=== PATIENT | female | born 1930 | race Caucasian/White ===

== ENCOUNTER 2016-05-14 11:42 | Inpatient (IN) | payer MEDICARE, BC ==
[~2016-05-14] VITALS: Ht 154.9 cm; Wt 59.6 kg
[2016-05-14] MEDS ORDERED: NEB-ALBUTEROL 2.5 MG/3 ML INH PRN (19:55)
[2016-05-14] MEDS ORDERED: PNEUMO VAC 25 MCG/0.5 ML VL IM.VACC ONE (19:55)
[2016-05-14] MEDS: NEB-BROVANA 15 MCG/2 ML INH SCH (20:00)
[2016-05-14] MEDS: DOCUSATE SOD 100 MG CAP PO SCH (21:00)
[2016-05-14] MEDS: SACCHA BOULARDII 250MG CAP PO SCH (21:00)
[2016-05-14] MEDS: FAMOTIDINE 20 MG TAB PO SCH (21:00)
[2016-05-14] MEDS: ALPRAZOLAM 0.25 MG TAB PO SCH (21:00)
[2016-05-14] MEDS ORDERED: TUBERCULIN PPD 5 UNIT SYR ID.VACC ONE (21:00)
[2016-05-14] MEDS: Carvedilol 3.125 MG TAB PO SCH (21:00)
[2016-05-14] MEDS: MONTELUKAST 10 MG TAB PO SCH (21:00)
[2016-05-14] MEDS: Atorvastatin 20 MG TAB PO SCH (21:00)
[2016-05-14 22:44] VITALS: BMI 24.9
[2016-05-14 23:54] VITALS: RESP 16
[2016-05-15 00:19] VITALS: BP_SYST 113; BP_SYST 114; RESP 18; TEMP 98
[2016-05-15 00:20] VITALS: BP_SYST 118; RESP 18
[2016-05-15] MEDS: LEVOTHYROXINE 0.088 MG TAB PO SCH (06:03)
[2016-05-15] MEDS: DUONEB INH SCH ×3 (06:30→19:46)
[2016-05-15] MEDS: NEB-BUDESONIDE 0.5 MG INH SCH ×2 (07:00→19:46)
[2016-05-15] MEDS: NEB-BROVANA 15 MCG/2 ML INH SCH ×2 (07:41→19:46)
[2016-05-15] MEDS: CHOLECALCIFEROL 1,000 UNITS TAB PO SCH (09:37)
[2016-05-15] MEDS: SACCHA BOULARDII 250MG CAP PO SCH ×2 (09:37→20:36)
[2016-05-15] MEDS: FAMOTIDINE 20 MG TAB PO SCH ×2 (09:38→20:35)
[2016-05-15] MEDS: Carvedilol 3.125 MG TAB PO SCH ×2 (09:38→20:36)
[2016-05-15] MEDS: SERTRALINE 25 MG TAB PO SCH (09:38)
[2016-05-15] MEDS: PREDNISONE 20 MG TAB PO SCH (09:39)
[2016-05-15] MEDS: Furosemide 20 MG TAB PO SCH (09:39)
[2016-05-15] MEDS: ENOXAPARIN 40 MG/0.4 ML SYR SUBQ SCH (09:41)
[2016-05-15] MEDS: ALPRAZOLAM 0.25 MG TAB PO SCH ×3 (09:48→20:37)
[2016-05-15 10:10] VITALS: Ht 154.9 cm; Wt 59.6 kg
[2016-05-15 10:19] VITALS: BP_SYST 154; RESP 18; TEMP 97.7
[2016-05-15 20:00] VITALS: BP_SYST 137; RESP 18; TEMP 97.9
[2016-05-15] MEDS: Atorvastatin 20 MG TAB PO SCH (20:35)
[2016-05-15] MEDS: POLYETHYLENE GLYCOL 17 GM PACKET PO SCH (20:36)
[2016-05-15] MEDS: MONTELUKAST 10 MG TAB PO SCH (20:36)
[2016-05-15] MEDS: DOCUSATE SOD 100 MG CAP PO SCH (20:36)
[2016-05-16] MEDS: LEVOTHYROXINE 0.088 MG TAB PO SCH (06:29)
[2016-05-16] MEDS: NEB-BROVANA 15 MCG/2 ML INH SCH ×2 (07:03→18:14)
[2016-05-16] MEDS: NEB-BUDESONIDE 0.5 MG INH SCH ×2 (07:03→18:14)
[2016-05-16] MEDS: DUONEB INH SCH ×3 (07:03→18:14)
[2016-05-16 07:25] VITALS: BP_SYST 140; RESP 18; TEMP 97.6
[2016-05-16] MEDS: POLYETHYLENE GLYCOL 17 GM PACKET PO SCH (10:17)
[2016-05-16] MEDS: PREDNISONE 20 MG TAB PO SCH (10:17)
[2016-05-16] MEDS: Furosemide 20 MG TAB PO SCH (10:17)
[2016-05-16] MEDS: Carvedilol 3.125 MG TAB PO SCH ×2 (10:17→20:23)
[2016-05-16] MEDS: CHOLECALCIFEROL 1,000 UNITS TAB PO SCH (10:17)
[2016-05-16] MEDS: ENOXAPARIN 40 MG/0.4 ML SYR SUBQ SCH (10:18)
[2016-05-16] MEDS: SERTRALINE 25 MG TAB PO SCH (10:18)
[2016-05-16] MEDS: FAMOTIDINE 20 MG TAB PO SCH ×2 (10:18→20:24)
[2016-05-16] MEDS: SACCHA BOULARDII 250MG CAP PO SCH ×2 (10:19→20:23)
[2016-05-16] MEDS: ALPRAZOLAM 0.25 MG TAB PO SCH ×3 (10:23→20:24)
[2016-05-16 11:18] VITALS: BP_SYST 153; RESP 18; TEMP 97.7
[2016-05-16 16:12] VITALS: BP_SYST 131; RESP 18; TEMP 98.7
[2016-05-16] MEDS: NEB-ALBUTEROL 2.5 MG/3 ML INH PRN (16:42)
[2016-05-16] MEDS: DOCUSATE SOD 100 MG CAP PO SCH (20:23)
[2016-05-16] MEDS: MONTELUKAST 10 MG TAB PO SCH (20:24)
[2016-05-16] MEDS: Atorvastatin 20 MG TAB PO SCH (20:24)
[2016-05-16] MEDS: SKIN TEST: READ AND RECORD XX SCH (20:29)
[2016-05-17] MEDS: LEVOTHYROXINE 0.088 MG TAB PO SCH (06:16)
[2016-05-17 06:30] VITALS: BP_SYST 162; TEMP 97.6
[2016-05-17 06:31] VITALS: TEMP 97.6
[2016-05-17] MEDS: DUONEB INH SCH ×3 (07:14→17:03)
[2016-05-17] MEDS: NEB-BUDESONIDE 0.5 MG INH SCH ×2 (07:14→17:03)
[2016-05-17] MEDS: NEB-BROVANA 15 MCG/2 ML INH SCH ×2 (07:14→17:03)
[2016-05-17] MEDS ORDERED: KCL CR 20 MEQ TAB PO ONE (08:45)
[2016-05-17] MEDS ORDERED: POLYETHYLENE GLYCOL 17 GM PACKET PO PRN (08:50)
[2016-05-17 10:03] VITALS: BP_SYST 148; RESP 18; TEMP 97.7
[2016-05-17] MEDS: Carvedilol 3.125 MG TAB PO SCH ×2 (10:20→21:03)
[2016-05-17] MEDS: ENOXAPARIN 40 MG/0.4 ML SYR SUBQ SCH (10:20)
[2016-05-17] MEDS: SERTRALINE 25 MG TAB PO SCH (10:20)
[2016-05-17] MEDS: Furosemide 20 MG TAB PO SCH (10:20)
[2016-05-17] MEDS: SACCHA BOULARDII 250MG CAP PO SCH ×2 (10:21→21:04)
[2016-05-17] MEDS: CHOLECALCIFEROL 1,000 UNITS TAB PO SCH (10:21)
[2016-05-17] MEDS: FAMOTIDINE 20 MG TAB PO SCH ×2 (10:22→21:04)
[2016-05-17] MEDS: ALPRAZOLAM 0.25 MG TAB PO SCH ×3 (10:28→21:03)
[2016-05-17] MEDS: BENZONATATE 100 MG CAP PO SCH ×2 (16:22→21:05)
[2016-05-17 16:30] VITALS: BP_SYST 117; RESP 18; TEMP 97.5
[2016-05-17] MEDS: DOCUSATE SOD 100 MG CAP PO SCH (21:03)
[2016-05-17] MEDS: MONTELUKAST 10 MG TAB PO SCH (21:04)
[2016-05-17] MEDS: Atorvastatin 20 MG TAB PO SCH (21:04)
[2016-05-18 05:00] VITALS: BP_SYST 14; RESP 18; TEMP 97.4
[2016-05-18] MEDS: LEVOTHYROXINE 0.088 MG TAB PO SCH (06:29)
[2016-05-18] MEDS ORDERED: MISSING DOSE XX ONE (06:30)
[2016-05-18] MEDS: NEB-BUDESONIDE 0.5 MG INH SCH ×2 (07:35→19:01)
[2016-05-18] MEDS: DUONEB INH SCH ×3 (07:35→19:01)
[2016-05-18] MEDS: NEB-BROVANA 15 MCG/2 ML INH SCH ×2 (07:35→19:01)
[2016-05-18] MEDS: SERTRALINE 25 MG TAB PO SCH (09:04)
[2016-05-18] MEDS: CHOLECALCIFEROL 1,000 UNITS TAB PO SCH (09:04)
[2016-05-18] MEDS: Carvedilol 3.125 MG TAB PO SCH ×2 (09:05→20:31)
[2016-05-18] MEDS: SACCHA BOULARDII 250MG CAP PO SCH ×2 (09:05→20:31)
[2016-05-18] MEDS: ALPRAZOLAM 0.25 MG TAB PO SCH ×3 (09:05→20:31)
[2016-05-18] MEDS: PREDNISONE 10 MG TAB PO SCH (09:05)
[2016-05-18] MEDS: Furosemide 20 MG TAB PO SCH (09:05)
[2016-05-18] MEDS: FAMOTIDINE 20 MG TAB PO SCH ×2 (09:06→20:32)
[2016-05-18] MEDS: KCL CR 10 MEQ CAP PO SCH (09:06)
[2016-05-18] MEDS: BENZONATATE 100 MG CAP PO SCH (09:07)
[2016-05-18] MEDS: ENOXAPARIN 40 MG/0.4 ML SYR SUBQ SCH (09:08)
[2016-05-18 10:18] VITALS: BP_SYST 147; RESP 18; TEMP 97.4
[2016-05-18 16:06] VITALS: BP_SYST 133; RESP 18; TEMP 97.7
[2016-05-18] MEDS: MONTELUKAST 10 MG TAB PO SCH (20:31)
[2016-05-18] MEDS: DOCUSATE SOD 100 MG CAP PO SCH (20:31)
[2016-05-18] MEDS: Atorvastatin 20 MG TAB PO SCH (20:32)
[2016-05-19 05:02] VITALS: BP_SYST 127; RESP 18; TEMP 97.7
[2016-05-19] MEDS: NEB-BUDESONIDE 0.5 MG INH SCH ×2 (07:00→19:13)
[2016-05-19] MEDS: LEVOTHYROXINE 0.088 MG TAB PO SCH (07:45)
[2016-05-19] MEDS: DUONEB INH SCH ×3 (07:49→19:13)
[2016-05-19] MEDS: NEB-BROVANA 15 MCG/2 ML INH SCH ×2 (07:50→19:13)
[2016-05-19] MEDS: SERTRALINE 25 MG TAB PO SCH (09:00)
[2016-05-19] MEDS: CHOLECALCIFEROL 1,000 UNITS TAB PO SCH (09:01)
[2016-05-19] MEDS: SACCHA BOULARDII 250MG CAP PO SCH ×2 (09:01→20:54)
[2016-05-19] MEDS: Carvedilol 3.125 MG TAB PO SCH ×2 (09:01→20:54)
[2016-05-19] MEDS: KCL CR 10 MEQ CAP PO SCH (09:01)
[2016-05-19] MEDS: FAMOTIDINE 20 MG TAB PO SCH ×2 (09:01→20:54)
[2016-05-19] MEDS: PREDNISONE 10 MG TAB PO SCH (09:02)
[2016-05-19] MEDS: Furosemide 20 MG TAB PO SCH (09:02)
[2016-05-19] MEDS: ENOXAPARIN 40 MG/0.4 ML SYR SUBQ SCH (09:03)
[2016-05-19] MEDS: POLYETHYLENE GLYCOL 17 GM PACKET PO PRN (09:05)
[2016-05-19] MEDS: ALPRAZOLAM 0.25 MG TAB PO SCH ×3 (09:10→20:59)
[2016-05-19] MEDS: BENZONATATE 100 MG CAP PO PRN ×2 (12:39→20:53)
[2016-05-19 13:06] VITALS: BP_SYST 114; RESP 18; TEMP 97.8
[2016-05-19 13:07] VITALS: RESP 20; TEMP 98
[2016-05-19 16:01] VITALS: BP_SYST 151; RESP 18; TEMP 97.8
[2016-05-19] MEDS: MONTELUKAST 10 MG TAB PO SCH (20:53)
[2016-05-19] MEDS: DOCUSATE SOD 100 MG CAP PO SCH (20:54)
[2016-05-19] MEDS: Atorvastatin 20 MG TAB PO SCH (20:54)
[2016-05-20] MEDS: ALENDRONATE 70 MG TAB PO SCH (06:18)
[2016-05-20 07:10] VITALS: BP_SYST 130; RESP 18; TEMP 98
[2016-05-20] MEDS: LEVOTHYROXINE 0.088 MG TAB PO SCH (07:34)
[2016-05-20] MEDS: DUONEB INH SCH ×3 (08:27→19:17)
[2016-05-20] MEDS: NEB-BROVANA 15 MCG/2 ML INH SCH ×2 (08:27→19:17)
[2016-05-20] MEDS: NEB-BUDESONIDE 0.5 MG INH SCH ×2 (08:27→19:17)
[2016-05-20] MEDS ORDERED: MISSING DOSE XX ONE (10:00)
[2016-05-20] MEDS: ALPRAZOLAM 0.25 MG TAB PO SCH ×3 (10:02→21:17)
[2016-05-20] MEDS: BENZONATATE 100 MG CAP PO PRN ×2 (10:02→17:59)
[2016-05-20] MEDS: ENOXAPARIN 40 MG/0.4 ML SYR SUBQ SCH (10:02)
[2016-05-20] MEDS: FAMOTIDINE 20 MG TAB PO SCH ×2 (10:03→21:17)
[2016-05-20] MEDS: KCL CR 10 MEQ CAP PO SCH (10:03)
[2016-05-20] MEDS: PREDNISONE 10 MG TAB PO SCH (10:03)
[2016-05-20] MEDS: SERTRALINE 25 MG TAB PO SCH (10:03)
[2016-05-20] MEDS: SACCHA BOULARDII 250MG CAP PO SCH ×2 (10:04→21:17)
[2016-05-20] MEDS: Furosemide 20 MG TAB PO SCH (10:04)
[2016-05-20] MEDS: Carvedilol 3.125 MG TAB PO SCH ×2 (10:04→21:17)
[2016-05-20 10:53] VITALS: BP_SYST 152; RESP 18; TEMP 98.1
[2016-05-20] MEDS: CHOLECALCIFEROL 1,000 UNITS TAB PO SCH (10:59)
[2016-05-20 15:32] VITALS: BP_SYST 159; RESP 18; TEMP 97.6
[2016-05-20] MEDS: ACETAMINOPHEN 325 MG TAB PO PRN (15:49)
[2016-05-20] MEDS: MONTELUKAST 10 MG TAB PO SCH (21:17)
[2016-05-20] MEDS: Atorvastatin 20 MG TAB PO SCH (21:17)
[2016-05-20] MEDS: DOCUSATE SOD 100 MG CAP PO SCH (21:17)
[2016-05-21 00:04] VITALS: BP_SYST 152; RESP 18; TEMP 98
[2016-05-21] MEDS: DUONEB INH SCH ×3 (06:06→19:20)
[2016-05-21] MEDS: LEVOTHYROXINE 0.088 MG TAB PO SCH (06:06)
[2016-05-21] MEDS: NEB-BUDESONIDE 0.5 MG INH SCH ×2 (06:06→19:20)
[2016-05-21] MEDS: NEB-BROVANA 15 MCG/2 ML INH SCH ×2 (06:07→19:20)
[2016-05-21] MEDS: FAMOTIDINE 20 MG TAB PO SCH ×2 (09:16→20:53)
[2016-05-21] MEDS: SERTRALINE 25 MG TAB PO SCH (09:16)
[2016-05-21] MEDS: ALPRAZOLAM 0.25 MG TAB PO SCH ×3 (09:16→20:53)
[2016-05-21] MEDS: PREDNISONE 10 MG TAB PO SCH (09:16)
[2016-05-21] MEDS: Carvedilol 3.125 MG TAB PO SCH ×2 (09:17→20:53)
[2016-05-21] MEDS: SACCHA BOULARDII 250MG CAP PO SCH ×2 (09:17→20:53)
[2016-05-21] MEDS: Furosemide 20 MG TAB PO SCH (09:17)
[2016-05-21] MEDS: KCL CR 10 MEQ CAP PO SCH (09:17)
[2016-05-21] MEDS: CHOLECALCIFEROL 1,000 UNITS TAB PO SCH (09:18)
[2016-05-21] MEDS: POLYETHYLENE GLYCOL 17 GM PACKET PO PRN (09:18)
[2016-05-21] MEDS: ENOXAPARIN 40 MG/0.4 ML SYR SUBQ SCH (09:26)
[2016-05-21 11:39] VITALS: BP_SYST 119; RESP 16; TEMP 98.7
[2016-05-21] MEDS: NEB-ALBUTEROL 2.5 MG/3 ML INH PRN (15:23)
[2016-05-21 16:40] VITALS: BP_SYST 115; RESP 18; TEMP 97.3
[2016-05-21] MEDS: MONTELUKAST 10 MG TAB PO SCH (20:53)
[2016-05-21] MEDS: Atorvastatin 20 MG TAB PO SCH (20:53)
[2016-05-21] MEDS: DOCUSATE SOD 100 MG CAP PO SCH (20:54)
[2016-05-21] MEDS ORDERED: TUBERCULIN PPD 5 UNIT SYR ID.VACC ONE (21:00)
[2016-05-21] MEDS: BENZONATATE 100 MG CAP PO PRN (21:06)
[2016-05-22] VITALS (8 sets, daily range): BP systolic 137–157; RESP 18–20; TEMP 97.4–98.1
[2016-05-22] MEDS: NEB-BUDESONIDE 0.5 MG INH SCH ×2 (05:19→17:35)
[2016-05-22] MEDS: DUONEB INH SCH ×5 (05:19→22:55)
[2016-05-22] MEDS: NEB-BROVANA 15 MCG/2 ML INH SCH ×2 (05:19→17:35)
[2016-05-22] MEDS: LEVOTHYROXINE 0.088 MG TAB PO SCH (06:24)
[2016-05-22] MEDS: NEB-ALBUTEROL 2.5 MG/3 ML INH PRN (06:41)
[2016-05-22] MEDS: ALPRAZOLAM 0.25 MG TAB PO SCH ×2 (07:16→15:30)
[2016-05-22] MEDS: Furosemide 20 MG TAB PO SCH (07:17)
[2016-05-22] MEDS: KCL CR 10 MEQ CAP PO SCH (09:02)
[2016-05-22] MEDS: Carvedilol 3.125 MG TAB PO SCH ×2 (09:03→20:32)
[2016-05-22] MEDS: BENZONATATE 100 MG CAP PO PRN ×2 (09:03→20:34)
[2016-05-22] MEDS: SACCHA BOULARDII 250MG CAP PO SCH ×2 (09:03→20:32)
[2016-05-22] MEDS: CHOLECALCIFEROL 1,000 UNITS TAB PO SCH (09:04)
[2016-05-22] MEDS: SERTRALINE 25 MG TAB PO SCH (09:05)
[2016-05-22] MEDS: FAMOTIDINE 20 MG TAB PO SCH ×2 (09:05→20:32)
[2016-05-22] MEDS: ENOXAPARIN 40 MG/0.4 ML SYR SUBQ SCH (09:11)
[2016-05-22] MEDS: PREDNISONE 10 MG TAB PO SCH (09:15)
[2016-05-22] MEDS ORDERED: Furosemide 20 MG/2 ML VIAL IV ONE (17:15)
[2016-05-22] MEDS: NEB-NACL 3% 4 ML NEBU INH SCH ×2 (17:35→22:55)
[2016-05-22] MEDS: Atorvastatin 20 MG TAB PO SCH (20:32)
[2016-05-22] MEDS: DOCUSATE SOD 100 MG CAP PO SCH ×2 (20:32→20:38)
[2016-05-22] MEDS: MONTELUKAST 10 MG TAB PO SCH (20:32)
[2016-05-23] MEDS: NEB-ALBUTEROL 2.5 MG/3 ML INH PRN ×2 (03:07→23:45)
[2016-05-23 03:10] VITALS: BP_SYST 157; RESP 20; TEMP 97.4
[2016-05-23] MEDS: ALPRAZOLAM 0.25 MG TAB PO PRN ×3 (03:21→16:27)
[2016-05-23] MEDS: DUONEB INH SCH ×5 (05:10→23:46)
[2016-05-23] MEDS: NEB-BROVANA 15 MCG/2 ML INH SCH ×2 (05:10→17:17)
[2016-05-23] MEDS: NEB-NACL 3% 4 ML NEBU INH SCH ×4 (05:10→23:46)
[2016-05-23] MEDS: NEB-BUDESONIDE 0.5 MG INH SCH ×2 (05:11→17:18)
[2016-05-23] MEDS: Carvedilol 3.125 MG TAB PO SCH ×2 (08:38→20:52)
[2016-05-23] MEDS: SACCHA BOULARDII 250MG CAP PO SCH ×2 (08:38→20:52)
[2016-05-23] MEDS: KCL CR 10 MEQ CAP PO SCH (08:38)
[2016-05-23] MEDS: FAMOTIDINE 20 MG TAB PO SCH ×2 (08:38→20:52)
[2016-05-23] MEDS: LEVOTHYROXINE 0.088 MG TAB PO SCH (08:39)
[2016-05-23] MEDS: Furosemide 20 MG TAB PO SCH (08:39)
[2016-05-23] MEDS: CHOLECALCIFEROL 1,000 UNITS TAB PO SCH (08:39)
[2016-05-23] MEDS: SERTRALINE 25 MG TAB PO SCH (08:40)
[2016-05-23] MEDS: ENOXAPARIN 40 MG/0.4 ML SYR SUBQ SCH (08:40)
[2016-05-23 10:13] VITALS: BP_SYST 143; RESP 20; TEMP 97.8
[2016-05-23] MEDS ORDERED: MISSING DOSE XX ONE (10:15)
[2016-05-23] MEDS: BENZONATATE 100 MG CAP PO PRN ×2 (11:04→18:31)
[2016-05-23 16:25] VITALS: BP_SYST 132; RESP 20; TEMP 97.8
[2016-05-23] MEDS: MONTELUKAST 10 MG TAB PO SCH (20:52)
[2016-05-23] MEDS: Atorvastatin 20 MG TAB PO SCH (20:52)
[2016-05-23] MEDS: DOCUSATE SOD 100 MG CAP PO SCH (20:52)
[2016-05-23] MEDS: SKIN TEST: READ AND RECORD XX SCH (20:54)
[2016-05-24 00:03] VITALS: BP_SYST 151; RESP 20
[2016-05-24] MEDS: ALPRAZOLAM 0.25 MG TAB PO PRN ×2 (00:06→09:16)
[2016-05-24] MEDS: DUONEB INH SCH ×5 (05:19→22:58)
[2016-05-24] MEDS: NEB-NACL 3% 4 ML NEBU INH SCH ×4 (05:19→22:58)
[2016-05-24] MEDS: NEB-BROVANA 15 MCG/2 ML INH SCH ×2 (05:19→18:40)
[2016-05-24] MEDS: NEB-BUDESONIDE 0.5 MG INH SCH ×2 (05:19→18:40)
[2016-05-24] MEDS: LEVOTHYROXINE 0.088 MG TAB PO SCH (06:15)
[2016-05-24] MEDS: CHOLECALCIFEROL 1,000 UNITS TAB PO SCH (09:22)
[2016-05-24] MEDS: KCL CR 10 MEQ CAP PO SCH (09:22)
[2016-05-24] MEDS: ENOXAPARIN 40 MG/0.4 ML SYR SUBQ SCH (09:22)
[2016-05-24] MEDS: SERTRALINE 25 MG TAB PO SCH (09:22)
[2016-05-24] MEDS: BENZONATATE 100 MG CAP PO PRN ×2 (09:22→20:58)
[2016-05-24] MEDS: Furosemide 20 MG TAB PO SCH (09:23)
[2016-05-24] MEDS: FAMOTIDINE 20 MG TAB PO SCH ×2 (09:23→20:59)
[2016-05-24] MEDS: Carvedilol 3.125 MG TAB PO SCH ×2 (09:23→20:58)
[2016-05-24] MEDS: SACCHA BOULARDII 250MG CAP PO SCH ×2 (09:23→20:58)
[2016-05-24 11:30] VITALS: BP_SYST 131; RESP 20; TEMP 98
[2016-05-24] MEDS ORDERED: Furosemide 20 MG/2 ML VIAL IV ONE (14:30)
[2016-05-24] MEDS: PREDNISONE 20 MG TAB PO SCH (15:21)
[2016-05-24] MEDS: BUSPIRONE HCL 5 MG TAB PO SCH ×2 (15:21→20:58)
[2016-05-24 16:57] VITALS: BP_SYST 155; RESP 20; TEMP 97.9
[2016-05-24] MEDS: Atorvastatin 20 MG TAB PO SCH (20:58)
[2016-05-24] MEDS: DOCUSATE SOD 100 MG CAP PO SCH (20:59)
[2016-05-24] MEDS: MONTELUKAST 10 MG TAB PO SCH (20:59)
[2016-05-24] MEDS: LORAZEPAM 0.5 MG TAB PO PRN (21:49)
[2016-05-24 23:42] VITALS: BP_SYST 103; RESP 18; TEMP 97.5
[2016-05-24 23:43] VITALS: RESP 18
[2016-05-25] VITALS (7 sets, daily range): BP systolic 127–165; RESP 18; TEMP 97.4–98.3
[2016-05-25] MEDS: NEB-BUDESONIDE 0.5 MG INH SCH ×2 (06:21→18:45)
[2016-05-25] MEDS: NEB-BROVANA 15 MCG/2 ML INH SCH ×2 (06:21→18:45)
[2016-05-25] MEDS: NEB-NACL 3% 4 ML NEBU INH SCH ×4 (06:21→22:27)
[2016-05-25] MEDS: DUONEB INH SCH ×5 (06:21→22:27)
[2016-05-25] MEDS: LEVOTHYROXINE 0.088 MG TAB PO SCH (06:28)
[2016-05-25] MEDS: CHOLECALCIFEROL 1,000 UNITS TAB PO SCH (08:21)
[2016-05-25] MEDS: SACCHA BOULARDII 250MG CAP PO SCH ×2 (08:22→21:06)
[2016-05-25] MEDS: BUSPIRONE HCL 5 MG TAB PO SCH ×2 (08:22→21:06)
[2016-05-25] MEDS: Carvedilol 3.125 MG TAB PO SCH ×2 (08:22→21:06)
[2016-05-25] MEDS: KCL CR 10 MEQ CAP PO SCH (08:22)
[2016-05-25] MEDS: PREDNISONE 20 MG TAB PO SCH (08:22)
[2016-05-25] MEDS: FAMOTIDINE 20 MG TAB PO SCH ×2 (08:22→21:06)
[2016-05-25] MEDS: Furosemide 40 MG TAB PO SCH (08:23)
[2016-05-25] MEDS: ENOXAPARIN 40 MG/0.4 ML SYR SUBQ SCH (08:23)
[2016-05-25] MEDS: SERTRALINE 25 MG TAB PO SCH (08:23)
[2016-05-25] MEDS: LORAZEPAM 0.5 MG TAB PO PRN ×2 (15:59→22:49)
[2016-05-25] MEDS: MONTELUKAST 10 MG TAB PO SCH (21:06)
[2016-05-25] MEDS: DOCUSATE SOD 100 MG CAP PO SCH (21:06)
[2016-05-25] MEDS: Atorvastatin 20 MG TAB PO SCH (21:06)
[2016-05-26] MEDS: LEVOTHYROXINE 0.088 MG TAB PO SCH (06:09)
[2016-05-26] MEDS: NEB-BUDESONIDE 0.5 MG INH SCH ×2 (07:20→19:46)
[2016-05-26] MEDS: NEB-NACL 3% 4 ML NEBU INH SCH ×4 (07:20→22:15)
[2016-05-26] MEDS: NEB-BROVANA 15 MCG/2 ML INH SCH ×2 (07:20→19:46)
[2016-05-26] MEDS: DUONEB INH SCH ×5 (07:20→22:15)
[2016-05-26] MEDS: BENZONATATE 100 MG CAP PO PRN (09:14)
[2016-05-26] MEDS: FAMOTIDINE 20 MG TAB PO SCH ×2 (09:15→21:25)
[2016-05-26] MEDS: CHOLECALCIFEROL 1,000 UNITS TAB PO SCH (09:15)
[2016-05-26] MEDS: SERTRALINE 25 MG TAB PO SCH (09:15)
[2016-05-26] MEDS: SACCHA BOULARDII 250MG CAP PO SCH ×2 (09:16→21:25)
[2016-05-26] MEDS: PREDNISONE 20 MG TAB PO SCH (09:17)
[2016-05-26] MEDS: KCL CR 10 MEQ CAP PO SCH (09:17)
[2016-05-26] MEDS: Carvedilol 3.125 MG TAB PO SCH ×2 (09:19→21:27)
[2016-05-26] MEDS: BUSPIRONE HCL 5 MG TAB PO SCH ×2 (09:19→21:24)
[2016-05-26] MEDS: Furosemide 40 MG TAB PO SCH (09:20)
[2016-05-26] MEDS: ENOXAPARIN 40 MG/0.4 ML SYR SUBQ SCH (09:22)
[2016-05-26 17:20] VITALS: BP_SYST 145; RESP 18; TEMP 97.8
[2016-05-26] MEDS: DOCUSATE SOD 100 MG CAP PO SCH (21:00)
[2016-05-26] MEDS: LORAZEPAM 0.5 MG TAB PO PRN (21:25)
[2016-05-26] MEDS: Atorvastatin 20 MG TAB PO SCH (21:25)
[2016-05-26] MEDS: MONTELUKAST 10 MG TAB PO SCH (21:25)
[2016-05-27 05:21] VITALS: BP_SYST 148; RESP 18; TEMP 98.6
[2016-05-27 05:22] VITALS: TEMP 98.6
[2016-05-27] MEDS: ALENDRONATE 70 MG TAB PO SCH (05:39)
[2016-05-27] MEDS: NEB-NACL 3% 4 ML NEBU INH SCH ×4 (06:17→22:53)
[2016-05-27] MEDS: NEB-BUDESONIDE 0.5 MG INH SCH ×2 (06:17→19:06)
[2016-05-27] MEDS: NEB-BROVANA 15 MCG/2 ML INH SCH ×2 (06:17→19:06)
[2016-05-27] MEDS: DUONEB INH SCH ×5 (06:17→22:53)
[2016-05-27] MEDS: LEVOTHYROXINE 0.088 MG TAB PO SCH (06:29)
[2016-05-27] MEDS: BENZONATATE 100 MG CAP PO PRN (09:34)
[2016-05-27] MEDS: SACCHA BOULARDII 250MG CAP PO SCH ×2 (09:34→21:32)
[2016-05-27] MEDS: CHOLECALCIFEROL 1,000 UNITS TAB PO SCH (09:34)
[2016-05-27] MEDS: SERTRALINE 25 MG TAB PO SCH (09:35)
[2016-05-27] MEDS: PREDNISONE 20 MG TAB PO SCH (09:35)
[2016-05-27] MEDS: KCL CR 10 MEQ CAP PO SCH (09:35)
[2016-05-27] MEDS: LORAZEPAM 0.5 MG TAB PO PRN ×3 (09:36→21:33)
[2016-05-27] MEDS: Carvedilol 3.125 MG TAB PO SCH ×2 (09:37→21:33)
[2016-05-27] MEDS: BUSPIRONE HCL 5 MG TAB PO SCH ×2 (09:37→21:34)
[2016-05-27] MEDS: FAMOTIDINE 20 MG TAB PO SCH ×2 (09:37→21:33)
[2016-05-27] MEDS: ENOXAPARIN 40 MG/0.4 ML SYR SUBQ SCH (09:39)
[2016-05-27] MEDS ORDERED: MISSING DOSE XX ONE (09:45)
[2016-05-27 10:30] VITALS: BP_SYST 146; RESP 18; TEMP 97.6
[2016-05-27] MEDS: Furosemide 40 MG TAB PO SCH (12:27)
[2016-05-27 17:27] VITALS: BP_SYST 130; RESP 20; TEMP 98.4
[2016-05-27] MEDS: MONTELUKAST 10 MG TAB PO SCH (21:33)
[2016-05-27] MEDS: DOCUSATE SOD 100 MG CAP PO SCH (21:33)
[2016-05-27] MEDS: Atorvastatin 20 MG TAB PO SCH (21:33)
[2016-05-27 23:27] VITALS: BP_SYST 142; RESP 18; TEMP 97.6
[2016-05-28] MEDS: LEVOTHYROXINE 0.088 MG TAB PO SCH (06:33)
[2016-05-28] MEDS: DUONEB INH SCH ×5 (07:02→22:31)
[2016-05-28] MEDS: NEB-BUDESONIDE 0.5 MG INH SCH ×2 (07:02→18:37)
[2016-05-28] MEDS: NEB-BROVANA 15 MCG/2 ML INH SCH ×2 (07:02→18:36)
[2016-05-28] MEDS: NEB-NACL 3% 4 ML NEBU INH SCH ×4 (07:02→22:32)
[2016-05-28] MEDS: LORAZEPAM 0.5 MG TAB PO PRN ×3 (07:48→22:53)
[2016-05-28 09:35] VITALS: BP_SYST 115; RESP 18; TEMP 97
[2016-05-28] MEDS: BENZONATATE 100 MG CAP PO PRN ×2 (09:51→21:08)
[2016-05-28] MEDS: ENOXAPARIN 40 MG/0.4 ML SYR SUBQ SCH (09:51)
[2016-05-28] MEDS: SACCHA BOULARDII 250MG CAP PO SCH ×2 (09:52→21:10)
[2016-05-28] MEDS: KCL CR 10 MEQ CAP PO SCH (09:52)
[2016-05-28] MEDS: CHOLECALCIFEROL 1,000 UNITS TAB PO SCH (09:52)
[2016-05-28] MEDS: FAMOTIDINE 20 MG TAB PO SCH ×2 (09:52→21:09)
[2016-05-28] MEDS: Carvedilol 3.125 MG TAB PO SCH ×2 (09:52→21:08)
[2016-05-28] MEDS: PREDNISONE 10 MG TAB PO SCH (09:52)
[2016-05-28] MEDS: SERTRALINE 25 MG TAB PO SCH (09:52)
[2016-05-28] MEDS: BUSPIRONE HCL 5 MG TAB PO SCH ×2 (09:53→21:08)
[2016-05-28] MEDS: Furosemide 40 MG TAB PO SCH (09:53)
[2016-05-28 15:38] VITALS: BP_SYST 130; RESP 18; TEMP 97
[2016-05-28] MEDS: DOCUSATE SOD 100 MG CAP PO SCH (21:08)
[2016-05-28] MEDS: ACETAMINOPHEN 325 MG TAB PO PRN (21:09)
[2016-05-28] MEDS: MONTELUKAST 10 MG TAB PO SCH (21:09)
[2016-05-28] MEDS: Atorvastatin 20 MG TAB PO SCH (21:10)
[2016-05-29 03:04] VITALS: BP_SYST 40; RESP 18; TEMP 98
[2016-05-29] MEDS: LEVOTHYROXINE 0.088 MG TAB PO SCH (06:36)
[2016-05-29] MEDS: NEB-BUDESONIDE 0.5 MG INH SCH ×2 (07:50→18:50)
[2016-05-29] MEDS: NEB-BROVANA 15 MCG/2 ML INH SCH ×2 (07:50→18:50)
[2016-05-29] MEDS: NEB-NACL 3% 4 ML NEBU INH SCH ×4 (07:50→22:56)
[2016-05-29] MEDS: DUONEB INH SCH ×5 (07:50→22:55)
[2016-05-29] MEDS: ENOXAPARIN 40 MG/0.4 ML SYR SUBQ SCH (08:54)
[2016-05-29] MEDS: CHOLECALCIFEROL 1,000 UNITS TAB PO SCH (08:54)
[2016-05-29] MEDS: KCL CR 10 MEQ CAP PO SCH (08:55)
[2016-05-29] MEDS: SACCHA BOULARDII 250MG CAP PO SCH ×2 (08:55→21:34)
[2016-05-29] MEDS: SERTRALINE 25 MG TAB PO SCH (08:55)
[2016-05-29] MEDS: FAMOTIDINE 20 MG TAB PO SCH ×2 (08:55→21:34)
[2016-05-29] MEDS: PREDNISONE 10 MG TAB PO SCH (08:55)
[2016-05-29] MEDS: LORAZEPAM 0.5 MG TAB PO PRN ×2 (08:55→21:39)
[2016-05-29] MEDS: BUSPIRONE HCL 5 MG TAB PO SCH ×2 (08:55→21:34)
[2016-05-29] MEDS: Furosemide 40 MG TAB PO SCH (08:56)
[2016-05-29] MEDS: Carvedilol 3.125 MG TAB PO SCH ×2 (08:56→21:34)
[2016-05-29] MEDS: BENZONATATE 100 MG CAP PO PRN (08:56)
[2016-05-29 10:47] VITALS: BP_SYST 165; RESP 18; TEMP 97.6
[2016-05-29 15:24] VITALS: BP_SYST 158; RESP 20; TEMP 97.8
[2016-05-29] MEDS ORDERED: TUSSIONEX SUSP UDC PO PRN (17:05)
[2016-05-29] MEDS ORDERED: LINEZOLID 600 MG TAB PO SCH (21:00)
[2016-05-29] MEDS: MONTELUKAST 10 MG TAB PO SCH (21:34)
[2016-05-29] MEDS: DOCUSATE SOD 100 MG CAP PO SCH (21:34)
[2016-05-29] MEDS: Atorvastatin 20 MG TAB PO SCH (21:34)
[2016-05-30 04:38] VITALS: BP_SYST 150; RESP 18; TEMP 98.1
[2016-05-30] MEDS: LEVOTHYROXINE 0.088 MG TAB PO SCH (06:37)
[2016-05-30] MEDS: DUONEB INH SCH ×4 (06:59→16:50)
[2016-05-30] MEDS: NEB-BUDESONIDE 0.5 MG INH SCH ×2 (06:59→16:50)
[2016-05-30] MEDS: NEB-BROVANA 15 MCG/2 ML INH SCH ×2 (06:59→16:50)
[2016-05-30] MEDS: NEB-NACL 3% 4 ML NEBU INH SCH ×3 (06:59→16:50)
[2016-05-30] MEDS: LORAZEPAM 0.5 MG TAB PO PRN ×2 (08:05→20:48)
[2016-05-30] MEDS: PREDNISONE 10 MG TAB PO SCH (09:32)
[2016-05-30] MEDS: BENZONATATE 100 MG CAP PO PRN (09:32)
[2016-05-30] MEDS: FAMOTIDINE 20 MG TAB PO SCH ×2 (09:32→20:48)
[2016-05-30] MEDS: CHOLECALCIFEROL 1,000 UNITS TAB PO SCH (09:32)
[2016-05-30] MEDS: SERTRALINE 25 MG TAB PO SCH (09:32)
[2016-05-30] MEDS: KCL CR 10 MEQ CAP PO SCH (09:32)
[2016-05-30] MEDS: SACCHA BOULARDII 250MG CAP PO SCH ×2 (09:32→20:48)
[2016-05-30] MEDS: Carvedilol 3.125 MG TAB PO SCH ×2 (09:33→20:52)
[2016-05-30] MEDS: Furosemide 40 MG TAB PO SCH (09:33)
[2016-05-30] MEDS: BUSPIRONE HCL 5 MG TAB PO SCH ×2 (09:33→20:47)
[2016-05-30] MEDS: ENOXAPARIN 40 MG/0.4 ML SYR SUBQ SCH (09:34)
[2016-05-30 10:08] VITALS: BP_SYST 142; RESP 20; TEMP 98.2
[2016-05-30 17:20] VITALS: BP_SYST 144; RESP 20; TEMP 98
[2016-05-30] MEDS: MONTELUKAST 10 MG TAB PO SCH (20:48)
[2016-05-30] MEDS: Atorvastatin 20 MG TAB PO SCH (20:48)
[2016-05-30] MEDS: DOCUSATE SOD 100 MG CAP PO SCH (20:48)
[2016-05-31] MEDS: NEB-NACL 3% 4 ML NEBU INH SCH ×3 (00:22→11:08)
[2016-05-31] MEDS: DUONEB INH SCH ×3 (00:22→11:08)
[2016-05-31 00:51] VITALS: BP_SYST 136; RESP 20; TEMP 98.1
[2016-05-31 01:10] VITALS: BP_SYST 121; RESP 20; TEMP 98.3
[2016-05-31] MEDS: LEVOTHYROXINE 0.088 MG TAB PO SCH (06:26)
[2016-05-31] MEDS: LORAZEPAM 0.5 MG TAB PO PRN (07:19)
[2016-05-31] MEDS: NEB-BUDESONIDE 0.5 MG INH SCH (07:33)
[2016-05-31] MEDS: NEB-BROVANA 15 MCG/2 ML INH SCH (07:33)
[2016-05-31] MEDS: ENOXAPARIN 40 MG/0.4 ML SYR SUBQ SCH (09:55)
[2016-05-31] MEDS: SERTRALINE 25 MG TAB PO SCH (09:55)
[2016-05-31] MEDS: Carvedilol 3.125 MG TAB PO SCH (09:56)
[2016-05-31] MEDS: CHOLECALCIFEROL 1,000 UNITS TAB PO SCH (09:56)
[2016-05-31] MEDS: FAMOTIDINE 20 MG TAB PO SCH (09:56)
[2016-05-31] MEDS: SACCHA BOULARDII 250MG CAP PO SCH (09:56)
[2016-05-31] MEDS: KCL CR 10 MEQ CAP PO SCH (09:56)
[2016-05-31] MEDS: PREDNISONE 10 MG TAB PO SCH (09:56)
[2016-05-31] MEDS: Furosemide 40 MG TAB PO SCH (09:56)
[2016-05-31] MEDS: BUSPIRONE HCL 5 MG TAB PO SCH (09:57)
[2016-05-31 10:25] VITALS: BP_SYST 142; RESP 20; TEMP 98.1
[2016-05-31 11:09] VITALS: BP_SYST 142; RESP 20; TEMP 98.1
== END 2016-05-31 14:42 | disposition home or self-care (01) | DRG 555 ==
LOC: NF 22:38
PROVIDERS: ADMIT Family Medicine; ATTEND Family Medicine
DX: R26.2 Difficulty in walking, not elsewhere classified (principal); J96.91 Respiratory failure, unspecified with hypoxia; J44.1 Chronic obstructive pulmonary disease with (acute) exacerbation; B44.9 Aspergillosis, unspecified; I10 Essential (primary) hypertension; E87.70 Fluid overload, unspecified; F41.9 Anxiety disorder, unspecified; T17.990A Other foreign object in respiratory tract, part unspecified in causing asphyxiation, initial encounter
CPT/HCPCS: 36415; 71020; 80048; 81001; 82785; 83880; 85025; 86003; 86580; 87077; 87088; 87186; 94640; 94667; 94668; 94799; 99232; 99306; 99308; 99309; 99316

== ENCOUNTER 2016-06-04 05:08 | Emergency (ER) | payer MEDICARE, BC ==
[2016-06-04] MEDS ORDERED: LORAZEPAM 0.5 MG TAB ONE (06:00)
[2016-06-04] MEDS ORDERED: DUONEB INH ONE (06:58)
== END 2016-06-04 08:48 | disposition home or self-care (01) ==
LOC: ER 05:08
DX: J44.1 Chronic obstructive pulmonary disease with (acute) exacerbation (principal); Z87.891 Personal history of nicotine dependence; F41.1 Generalized anxiety disorder
CPT/HCPCS: 71010; 94640; 94799

== ENCOUNTER 2016-06-23 16:18 | Emergency (ER) | payer MEDICARE, BC ==
[2016-06-23] MEDS ORDERED: DUONEB INH ONE (16:45)
[2016-06-23] MEDS ORDERED: NEB-ALBUTEROL 2.5 MG/3 ML INH ONE (16:46)
== END 2016-06-23 21:41 | disposition home or self-care (01) ==
LOC: ER 16:18
DX: J43.9 Emphysema, unspecified (principal); I50.9 Heart failure, unspecified
CPT/HCPCS: 36415; 71010; 80053; 82553; 83880; 84484; 85025; 93005; 94640

== ENCOUNTER 2016-06-24 00:03 | Emergency (ER) | payer MEDICARE, BC ==
[2016-06-24] MEDS ORDERED: OPTIRAY 350 100 ML VIAL HMH IV ONE (00:04)
== END 2016-06-24 04:02 | disposition home or self-care (01) ==
LOC: ER 00:03
DX: R06.00 Dyspnea, unspecified (principal); I11.9 Hypertensive heart disease without heart failure; J44.9 Chronic obstructive pulmonary disease, unspecified; J45.909 Unspecified asthma, uncomplicated; F41.1 Generalized anxiety disorder; Z79.899 Other long term (current) drug therapy; Z87.891 Personal history of nicotine dependence
CPT/HCPCS: 36415; 36600; 71010; 71260; 80053; 82553; 82803; 84484; 85025; 85610; 85730; 93005; 99284; Q9967